=== PATIENT | male | born 1960 | race Caucasian/White ===

== ENCOUNTER 2020-01-27 15:21 | Emergency (ER) | payer SELFPAY ==
[2020-01-27] MEDS ORDERED: Sulfameth/Trimethoprim DS 800-160mg TAB ONE (15:42)
== END 2020-01-27 15:41 | disposition home or self-care (01) ==
LOC: BURERS 15:21
DX: S61.012A Laceration without foreign body of left thumb without damage to nail, initial encounter (principal); L03.012 Cellulitis of left finger; F17.200 Nicotine dependence, unspecified, uncomplicated; I10 Essential (primary) hypertension; W26.0XXA Contact with knife, initial encounter
CPT/HCPCS: 99283

== ENCOUNTER 2021-02-19 17:34 | Emergency (ER) | payer SELFPAY | END 2021-02-19 18:47 | disposition home or self-care (01) | LOC: BURERS 17:34 | DX: L30.9 Dermatitis, unspecified (principal); I10 Essential (primary) hypertension | CPT/HCPCS: 99282 ==